=== PATIENT | female | born 1965 | race Two or more races ===

== ENCOUNTER → 2024-04-09 | Outpatient (CLI) | payer MEDICAID, SELFPAY ==
--- NOTE | 2024-04-09 11:00 | XR_ITS ---
Examination: Breast ultrasound, unilateral, right complete Date and time of exam: April 09, 2024 1124 hours INDICATIONS: Intermittent right breast pain several months, mammogram August 07, 2023 with microcalcifications upper outer right breast Technique: Real-time connor scale ultrasonographic imaging performed right breast including all 4 quadrants as well as nipple retroareolar and axillary region. Findings: 9:00 cyst 10 x 11 mm No solid nodules IMPRESSION: BI-RADS Category 2: Benign findings
== END | disposition home or self-care (01) ==
PROVIDERS: PCP Physician Assistant; Referring Provider Physician Assistant; Visit Provider Physician Assistant
DX: N60.01 Solitary cyst of right breast (principal)
CPT/HCPCS: 76641